=== PATIENT | male | born 1930 | race African-American/Black ===

== ENCOUNTER 2016-08-05 08:50 | Day surgery (SDC) | payer MEDICARE, OTHER ==
[~2016-08-05] VITALS: Ht 188 cm; Wt 73.6 kg
[~2016-08-05 08:50] MED LIST: 0.9% SODIUM CHLORIDE 10 ML SYRINGE IVP ONE; 0.9% SODIUM CHLORIDE 10 ML SYRINGE IVP PRN; ASPI-1093 PO
[2016-08-05] MEDS ORDERED: METOPROLOL TARTRATE 50 MG TABLET PO ONE (09:30)
[2016-08-05 09:59] LABS: ANION GAP 10 mmol/L (8-16); CALCIUM, TOTAL 8.9 mg/dL (8.8-10.5); CARBON DIOXIDE 27 mmol/L (22-29); CHLORIDE 106 mmol/L (98-107); CREATININE 1.31 mg/dL (0.60-1.30); GLOMERULAR FILTR. RATE CALC > 60 mL/min (>60); POTASSIUM 4.8 mmol/L (3.5-5.1); SODIUM SERUM 143 mmol/L (136-145); UREA NITROGEN, BLOOD 19 mg/dL (7-18)
[2016-08-05] MEDS ORDERED: IOVERSOL 350 MG/ML 150 ML VIAL ONE (10:41)
[2016-08-05] MEDS ORDERED: NITROGLYCERIN 400 MCG/SUBLINGUAL SPRAY 4.9 GM BOTTLE SL ONE (10:49)
[2016-08-05] MEDS ORDERED: METOPROLOL TARTRATE 5 MG/5 ML VIAL ONE (10:49)
== END 2016-08-05 12:15 | disposition home or self-care (01) ==
LOC: SDS 08:50 → EDSTATUS 11:00 → SDS 12:15
PROVIDERS: ATTEND Internal Medicine Cardiovascular Disease
DX: I25.10 Atherosclerotic heart disease of native coronary artery without angina pectoris (principal); Z79.82 Long term (current) use of aspirin; Z98.890 Other specified postprocedural states; Z87.891 Personal history of nicotine dependence; Z85.21 Personal history of malignant neoplasm of larynx; Z86.73 Personal history of transient ischemic attack (TIA), and cerebral infarction without residual deficits
CPT/HCPCS: 36415; 75574; 80048; 93005; Q9967; J3490

== ENCOUNTER 2017-09-29 13:04 | Inpatient (IN) | payer MEDICARE, OTHER ==
[~2017-09-29] VITALS: Ht 177.8 cm; Wt 74.8 kg
[~2017-09-29 13:04] MED LIST changes: -0.9% SODIUM CHLORIDE 10 ML SYRINGE IVP ONE; -0.9% SODIUM CHLORIDE 10 ML SYRINGE IVP PRN; -ASPI-1093 PO; +ASPI-1182 PO
[2017-09-29] MEDS ORDERED: ATOR10TA84 PO (13:08)
[2017-09-29] MEDS ORDERED: MINO50CA36 PO (13:08)
[2017-09-29] MEDS ORDERED: PRED20 PO (13:08)
[2017-09-29] MEDS ORDERED: METO25XL PO (13:08)
[2017-09-29] MEDS ORDERED: DOXY100C PO (13:08)
[2017-09-29] MEDS ORDERED: AMLO-512 PO (13:08)
[2017-09-29] MEDS ORDERED: DiphenhydrAMINE HCL 50 MG/ML VIAL IVP ONE (14:45)
[2017-09-29] MEDS ORDERED: MethylPREDNISolone SOD SUCC 125 MG/2 ML VIAL IVP ONE (14:45)
[2017-09-29] MEDS ORDERED: MINO100 PO (14:54)
[2017-09-29 15:45] LABS: HEMATOCRIT 36.5 % (41-53); HEMOGLOBIN 12.2 g/dL (13.5-17.5); MEAN CORPUSCULAR HGB CONC 33.4 G/dL (31.0-37.0); MEAN CORPUSCULAR VOLUME 93 fL (80-100); PLATELET COUNT (AUTO) 224 K/uL (150-450); RED BLOOD CELL COUNT(AUTO) 3.94 MIL/uL (4.50-5.90); RED CELL DISTRIBUTION WIDTH 16.9 % (11.5-14.5)
[2017-09-29 15:56] LABS: ANION GAP 8 mmol/L (8-16); CALCIUM, TOTAL 8.1 mg/dL (8.8-10.5); CARBON DIOXIDE 26 mmol/L (22-29); CHLORIDE 107 mmol/L (98-107); CREATININE 1.77 mg/dL (0.60-1.30); GLOMERULAR FILTR. RATE CALC 44 mL/min (>60); GLUCOSE,RANDOM 94 mg/dL (70-110); POTASSIUM 4.6 mmol/L (3.5-5.1); SODIUM SERUM 141 mmol/L (136-145); UREA NITROGEN, BLOOD 24 mg/dL (7-18)
[2017-09-29 16:02] LABS: ALANINE AMINOTRANSFERASE 25 U/L (12-78); ALBUMIN 2.3 g/dL (3.4-5.0); ALKALINE PHOSPHATASE 65 U/L (46-116); ASPARTATE AMINOTRANSFERASE 19 U/L (15-37); BILIRUBIN,TOTAL 0.4 mg/dL (0.1-1.0); C-REACTIVE PROTEIN QUANT 3.62 mg/dL (0.00-0.30); CREATINE KINASE, TOTAL 59 U/L (39-308); TOTAL PROTEIN, SERUM 6.6 g/dL (6.4-8.2)
[2017-09-29 16:05] LABS: B-TYPE NATRIURETIC PEPTIDE 66 pg/mL (0-100)
[2017-09-29] MEDS ORDERED: SODIUM CHLORIDE 0.9% 1,000 ML IV ONE ×2 (16:30→22:30)
[2017-09-29 16:39] LABS: BAND NEUTROPHILS % (MANUAL) 13 % (0-5); BASOPHILS % (MANUAL) 1 % (0-2); EOSINOPHILS % (MANUAL) 19 % (1-6); LYMPHOCYTES % (MANUAL) 7 % (22-44); MONOCYTES % (MANUAL) 9 % (2-9); SEGMENTED NEUTROPHILS % 51 % (40-70)
[2017-09-29] MEDS ORDERED: SODIUM CHLORIDE 0.9% 100 ML ONE (19:38)
[2017-09-29] MEDS ORDERED: IOVERSOL 350 MG/ML 100 ML VIAL ONE (19:38)
[2017-09-29] MEDS ORDERED: AZITHROMYCIN 500 MG/NS 250 ML IV ONE (22:15)
[2017-09-29] MEDS ORDERED: CefTRIAXone SODIUM 1 GM in DEXTROSE 5%-WATER 10 ML IV ONE (22:15)
[2017-09-29] MEDS ORDERED: MORPHINE SULFATE 2 MG/ML SYRINGE IVP PRN (22:30)
[2017-09-29] MEDS ORDERED: MAGNESIUM HYDROXIDE SUSPENSION 30 ML UDCUP PO PRN (22:30)
[2017-09-29] MEDS ORDERED: ALBUTEROL SULFATE 2.5 MG/0.5 ML NEB SOLUTION NEB PRN (22:30)
[2017-09-29] MEDS ORDERED: ACETAMINOPHEN 325 MG TABLET PO PRN (22:30)
[2017-09-29 23:08] VITALS: BP 137/86
[2017-09-29] MEDS: HEPARIN SODIUM,PORCINE 5,000 UNITS/ML VIAL SQ SCH (23:56)
[2017-09-30] MEDS ORDERED: PNEUMOCOCCAL VACCINE POLYVALENT 0.5 ML VIAL [PPSV23] IM ONE (00:30)
[2017-09-30 04:03] VITALS: BP 133/75
[2017-09-30 06:14] LABS: BASOPHILS % (AUTO) 0.3 % (0.0-2.0); HEMATOCRIT 32.8 % (41-53); HEMOGLOBIN 11.1 g/dL (13.5-17.5); LYMPHOCYTES # (AUTO) 0.7 K/uL (1.0-4.8); MEAN CORPUSCULAR HEMOGLOBIN 31.4 pg (26.0-34.0); MEAN CORPUSCULAR HGB CONC 33.8 G/dL (31.0-37.0); MEAN CORPUSCULAR VOLUME 93 fL (80-100); MONOCYTES # (AUTO) 0.2 K/uL (0.1-1.0); MONOCYTES % (AUTO) 1.9 % (2.0-9.0); NEUTROPHILS # (AUTO) 7.1 K/uL (1.8-7.7); PLATELET COUNT (AUTO) 229 K/uL (150-450); RED BLOOD CELL COUNT(AUTO) 3.54 MIL/uL (4.50-5.90); RED CELL DISTRIBUTION WIDTH 16.5 % (11.5-14.5)
[2017-09-30 06:29] LABS: CALCIUM, TOTAL 7.5 mg/dL (8.8-10.5); CREATININE 1.47 mg/dL (0.60-1.30); POTASSIUM 4.3 mmol/L (3.5-5.1)
[2017-09-30 06:49] LABS: NEUTROPHILS % (AUTO) 87.8 % (40.0-70.0)
[2017-09-30 08:06] VITALS: BP 113/66
[2017-09-30] MEDS: HEPARIN SODIUM,PORCINE 5,000 UNITS/ML VIAL SQ SCH ×2 (08:54→16:58)
[2017-09-30] MEDS ORDERED: PANTOPRAZOLE SODIUM 40 MG/VIAL IVP SCH (09:00)
[2017-09-30] MEDS ORDERED: DOCUSATE SODIUM 100 MG CAPSULE PO SCH (09:00)
[2017-09-30 11:48] VITALS: BP 123/70
[2017-09-30] MEDS ORDERED: SODIUM CHLORIDE 0.9% 500 ML IV ONE (12:00)
[2017-09-30 16:17] VITALS: BP 114/59
[2017-09-30] MEDS ORDERED: IVERMECTIN 3 MG TABLET PO ONE (17:45)
[2017-09-30] MEDS ORDERED: PERM60CR4 TP (18:29)
[2017-09-30] MEDS ORDERED: TRIA15CR48 TP (18:31)
[2017-09-30] MEDS ORDERED: IVER3 PO (18:33)
[2017-09-30] MEDS ORDERED: DIPH25CA85 PO (18:35)
[2017-09-30] MEDS ORDERED: CefTRIAXone SODIUM 1 GM in DEXTROSE 5%-WATER 10 ML IV SCH (22:00)
[2017-09-30] MEDS ORDERED: AZITHROMYCIN 500 MG/NS 250 ML IV SCH (23:00)
== END 2017-09-30 19:10 | disposition home or self-care (01) | DRG 606 ==
LOC: EMS 13:05 → 5S 21:45
PROVIDERS: ADMIT Internal Medicine; ATTEND Internal Medicine
DX: B86 Scabies (principal); E43 Unspecified severe protein-calorie malnutrition; N17.9 Acute kidney failure, unspecified; F17.210 Nicotine dependence, cigarettes, uncomplicated; I10 Essential (primary) hypertension; Z93.0 Tracheostomy status; Z85.819 Personal history of malignant neoplasm of unspecified site of lip, oral cavity, and pharynx; Z68.23 Body mass index [BMI] 23.0-23.9, adult
CPT/HCPCS: 71275; 83605; 85379; 86140; 87040; 92610; 93005; 93970; 96374; 96375; 99285; C9113; J0456; J0696; J1200; J1644; J2930; J7030; J7040; J7050; J7060